=== PATIENT | female | born 1945 | race Caucasian/White ===

== ENCOUNTER → 2017-02-14 | Outpatient (CLI) | payer MEDICARE, OTHER | END | disposition home or self-care (01) | LOC: CDC 10:28 | DX: M25.532 Pain in left wrist (principal); R22.32 Localized swelling, mass and lump, left upper limb | CPT/HCPCS: 93000 ==

== ENCOUNTER 2017-06-14 08:55 | Emergency (ER) | payer OTHER ==
[~2017-06-14] VITALS: Ht 167.6 cm; Wt 81.8 kg
[2017-06-14] MEDS ORDERED: TYLENOL WITH C1 EACH PO (10:42)
[2017-06-14] MEDS ORDERED: ULTRAM50 MG PO (10:45)
[2017-06-14 10:53] VITALS: BP 149/67
== END 2017-06-14 10:54 | disposition home or self-care (01) ==
LOC: EME 08:55
DX: S80.01XA Contusion of right knee, initial encounter (principal); X58.XXXA Exposure to other specified factors, initial encounter; Y93.01 Activity, walking, marching and hiking
CPT/HCPCS: 73564; 99281; 99284